=== PATIENT | female | born 1975 | race Caucasian/White ===

== ENCOUNTER 2017-05-18 16:53 | Inpatient (IN) | payer OTHER ==
[2017-05-18 18:00] VITALS: BMI 44.2
[2017-05-18 18:37] LABS: #Eosinphils 0.1 thou/uL (0.0-0.7); #Lymphocytes 2.1 thou/uL (1.20-3.40); %Basophils 0.1 % (0.0-1.0); %Eosinophils 0.6 % (0.0-10.0); %Lymphocytes 20.7 % (21.0-51.0); %Monocytes 9.9 % (0.0-10.0); Hematocrit 31.7 % (36.0-47.0); Mean Platelet Volume 7.2 fL (7.4-10.4); Red Blood Cell (RBC) Count 3.83 mill/uL (4.20-5.40); White Blood Cell (WBC) Count 10.1 thou/uL (4.8-10.8)
[2017-05-18 19:00] LABS: Bilirubin Negative (Negative); Blood, Urine Moderate (Negative); Glucose, Urine (Dipstick) Negative (Negative); Ketone, Urine Negative (Negative); Nitrite Negative (Negative); Protein, Urine (Dipstick) 30 mg/dL (Neg-Trace)
[2017-05-18 19:00] LABS: ALT (SGPT) 15 U/L (8-55); AST (SGOT) 13 U/L (5-34); Alkaline Phosphatase 149 U/L (40-150); Anion Gap 12 mmol/L (10-20); BUN (Urea Nitrogen) 8 mg/dL (7.0-18.7); Bilirubin, Total 0.3 mg/dL (0.2-1.2); Calc. Creatinine Clearance 234 mL/min (70-130); Calcium 8.5 mg/dL (7.8-10.44); Carbon Dioxide 21 mmol/L (22-29); Chloride 107 mmol/L (98-107); Estimated GFR-MDRD Greater than 90; Globulin 3.3 g/dL (2.4-3.5); Protein, Total 6.1 g/dL (6.0-8.3)
[2017-05-18 19:03] LABS: Bacteria/HPF None Seen HPF (None Seen); Hyaline Casts/LPF 7-10 HYALINE CAST LPF (0-3 Hyaline); RBC/HPF 21-50 HPF (0-3)
[2017-05-19] MEDS ORDERED: Ondansetron HCl/PF 4 MG/2 ML Vial IVP PRN (07:39)
--- NOTE | 2017-05-19 07:47 | HP ---
DATE OF ADMISSION: 05/18/2017 CHIEF COMPLAINT: Elevated blood pressure and proteinuria in the office. HISTORY OF PRESENT ILLNESS: At the time of presentation, Ms. Fabian is a 42-year-old 5, par a 3 at 36 weeks 4 days, who sees Dr. Sergio Ryder for care. The patient's blood pressure in the office was noted to be elevated as well as 3+ proteinuria on a urine dip. So, the patient wa s sent to Labor and Delivery for further evaluation. The patient denies any fever or chills. She d enies any cardiovascular or respiratory complaints. She denies any upper abdominal pain, vomiting, or constipation. She denies any headache or scotoma, but she does report some blurry vision through out the day, but states that she is not having it now. She reports good movement, occasional contractions, no vaginal bleeding and no leakage of fluid. LIMITED REVIEW OF SYSTEMS: Per HPI. PAST MEDICAL HISTORY: Interstitial cystitis. PAST SURGICAL HISTORY: 1. delivery. 2. Bladder biopsy. MEDICATIONS: 1. Prilosec. 2. vitamin. 3. Aspirin. ALLERGIES: SULFA causes swelling. SOCIAL HISTORY: The patient is . Denies tobacco, alcohol, or illicit drug use. PHYSICAL EXAMINATION: VITAL SIGNS: Blood pressure is 120s-150s/50s-60s, pulse 83, respiratory rate 16, temperature 98.6. GENERAL: Nontoxic-appearing obese female, in no acute distress. HEENT: Normocephalic, atraumatic. LUNGS: Clear to auscultation. CARDIOVASCULAR: Regular rate and rhythm. ABDOMEN: Gravid, obese, nontender. EXTREMITIES: Without cyanosis or clubbing. There is 1-2+ pitting edema of the bilateral lower extr emities, which is equal. NEUROLOGIC: Alert and oriented x3, no focal deficits. OBSTETRIC: heart tracing is reactive. Tocodynamometer shows occasional contractions. LABORATORY DATA: White blood cell count 10, hematocrit 31, platelets 221, BUN 8, creatinine 0.59. Sodium 136, potassium 3.8, AST 13, ALT 15, protein to creatinine ratio is 0.232. ASSESSMENT AND PLAN: 1. A 36-week 4-day intrauterine with category 1 tracing. 2. Gestational hypertension with proteinuria, but a gzplimj-rx-kpqqoldnez ratio is 0.232. We will keep patient for a 24-hour urine and observation of blood pressures. Dr. Ryder was notified.
[2017-05-19] MEDS ORDERED: FLU VACC QS2017-18 36 mo. & older 0.5 ML SYRINGE IM ONE (09:00)
--- NOTE | 2017-05-19 11:34 | PRG ---
DATE OF SERVICE: 05/19/2017 This is hospital day #1 TIME OF EVALUATION AT BEDSIDE: 11:05 a.m. LOCATION: Bed [address], [facility] at [place]. SUBJECTIVE: In brief, this is a patient admitted by Dr. Sonal Jarvis for blood pressure evaluation at 36 weeks and 5 days, history of prior section. We are in the process of doing a 24-nichole r urine collection that will over at approximately 2100 today. Currently, she has no new concerns o r complaints. She has no contractions, no vaginal bleeding, no leakage of fluid, no headaches, visu al changes or right upper quadrant symptoms. OBJECTIVE: Blood pressures are in the normal range in the 120s/60s to one teens over 70s. There wa s one blood pressure earlier today with systolic blood pressure in the 130s. A 24-hour urine collec tion will be done at 2100 tonight. Other labs were within normal limits. ASSESSMENT: This is a patient of Dr. Ryder that is undergoing a gestational hypertension evaluatio n. Her urine protein to creatinine ratio was borderline at 0.23 with a significant cut off defined as 0.3. I have discussed the case with Dr. Ryder and she has a repeat scheduled for [facility] at 07:15 in the morning. I have addressed this with her. PLAN: For now: 1. We will continue 24-hour urine. 2. Blood pressures show no evidence of severe criteria. 3. We may send the patient home today at 2100 after 24-hour urine collection if blood pressures con tinued to be mild. 4. Patient instructed on repeat at 37 weeks based on gestational hypertension/PIH based [facility] guidelines.
[2017-05-19 21:24] VITALS: BP 132/62; TEMP 98.1
[2017-05-19 21:26] LABS: Collection Duration 24 hrs
[2017-05-19 22:28] LABS: Protein - 24 Hr 380 mg/24 hr (Less than 300); Protein, Urine 33 mg/dL (1-14)
--- NOTE | 2017-05-20 03:36 | DIS ---
DATE OF ADMISSION: 05/19/2017 PRINCIPAL DIAGNOSES: 1. Gestational hypertension. 2. 36 weeks and 4 days gestation. 3. Prior section in the past. PRINCIPAL PROCEDURES: 1. A 24-hour urine collection. 2. Nonstress test monitoring. HOSPITAL REVIEW: In brief, this is a patient admitted on 05/19/[address] Sonal Jarvis as a patie nt of Dr. Ryder who is a 42-year-old 5, para 3 at 36 weeks and 4 days. She arrived after carlitos sales seen at the office of Dr. Ryder and was sent to Labor and Delivery for blood pressure evaluati on. She was noted to have an elevated urine protein on voided specimen of 3+ in the clinic. She wa s admitted by Dr. Sonal Jarvis for blood pressure evaluation. She does have a history of a prior c esarean section in the past. On laboratory assessment, her hematocrit value was 31, platelets were normal at 221 on 05/18/2017. AST and ALT were completely normal at 13 and 15. Creatinine was 0.59. Urine wkhahze-ve-kjlvbofenn ratio revealed a value less than 0.3 mg/dL (urine creatinine 172, urin e protein 40). The patient was kept for 24 hours for observation of blood pressure with blood press ures being in the 120s-130s over 60s-70s. Blood pressures occasionally were in the one-teens over 6 0s. The 24-hour urine collection terminated on 05/19/2017 at roughly 2120 hours. As her blood pres sures were only borderline, the diagnosis was made of likely gestational hypertension based on urine eouooqk-nv-zpbvoihocv ratio showing a nonproteinuric result. The 24-hour urine collection was sent for documentation. The case was also evaluated by Dr. Ryder who is aware of the patient's arrival . The patient was sent home on 05/19/2017 at roughly 2130 hours without acute complication. She patel s a repeat scheduled on Monday, which is at [address] Ryder, that is sc heduled for 07:00 a.m. She was told to arrive fasting at approximately 0515 hours in the morning on Monday. At time of discharge, there was no evidence of preeclampsia or of labor. There was no celia dence of vaginal bleeding. The nonstress test, which was evaluated by earlier today was normal/r eactive. The decision was made to send her home over the weekend and have her return on Monday, lavon ch is the 05/22 for elective repeat at 37 weeks for diagnosis of likely gestational hypert ension.
== END 2017-05-19 21:45 | disposition home or self-care (01) | DRG 782 ==
LOC: L&D/OP 16:53 → L&D 22:29 → 3SE 05-19 00:32
PROVIDERS: ADMIT Obstetrics & Gynecology; ATTEND Obstetrics & Gynecology
DX: O13.3 Gestational [pregnancy-induced] hypertension without significant proteinuria, third trimester (principal); O34.219 Maternal care for unspecified type scar from previous cesarean delivery; Z3A.36 36 weeks gestation of pregnancy
CPT/HCPCS: 36415; 59025; 80053; 81001; 82570; 84156; 85025

== ENCOUNTER 2017-05-22 05:11 | Inpatient (IN) | payer OTHER ==
--- NOTE | 2017-05-21 23:42 | HP ---
DATE OF ADMISSION: 05/22/2017 REASON FOR ADMISSION: Gestational hypertension, repeat section, advanced maternal age at 3 7 weeks' gestation. HISTORY OF PRESENT ILLNESS: Ms. Fabian is a 42-year-old 5, para 3, AB 2, living 3 with twin s, who has been my patient since the first trimester. She is for repeat section at term; h owever, the patient developed gestational hypertension with systolic blood pressures persistently gr eater than 140 with negative proteinuria. As per ACOG guidelines, a decision was made to proceed wi th repeat section at 37 weeks' gestation. 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 She had a SAB in 2015. PAST MEDICAL HISTORY: None. PAST SURGICAL HISTORY: . ALLERGIES: BACTRIM. MEDICATIONS: vitamins. SOCIAL HISTORY: Denies tobacco, alcohol, or drug use. FAMILY HISTORY: Noncontributory. REVIEW OF SYSTEMS: Noncontributory. PHYSICAL EXAMINATION: GENERAL: Reveals a white female. VITAL SIGNS: Blood pressure 150/72, 266 pounds. HEENT: Within normal limits. LUNGS: Clear to auscultation bilaterally. HEART: Regular rhythm. BREASTS: No masses bilaterally. ABDOMEN: Soft, nontender, no rebound or guarding. PELVIC: Vulva the patient has a mild case of hidradenitis suppurativa that has been persistent for the last 10 years. Vagina without discharge. Cervix closed, long, and high. Fundal height 42 cm. FHTs 140s. EXTREMITIES: Without clubbing, cyanosis, or edema. 3+ edema. IMAGING STUDIES: Ultrasound suggested an estimated weight of approximately 8.5-9 pounds, norm al placenta, normal amniotic fluid index. IMPRESSION: Prior section, advanced maternal age, obesity with gestational hypertension at 37 weeks' gestation. PLAN: Repeat section. We will administer appropriate antibiotic and deep venous thrombosi s prophylaxis.
[2017-05-22] MEDS ORDERED: Lactated Ringer's 1,000 ML IV PRN (05:42)
[2017-05-22] MEDS ORDERED: Ondansetron HCl/PF 4 MG/2 ML Vial IVP PRN ×2 (05:42→07:24)
[2017-05-22] MEDS ORDERED: Promethazine HCl 25 MG/ML VIAL IM PRN ×2 (05:42→07:24)
[2017-05-22] MEDS ORDERED: Lactated Ringer's 1,000 ML IV SCH ×2 (05:42→10:37)
[2017-05-22] MEDS ORDERED: Bicitra 30 ML UDCUP PO SCH (05:42)
[2017-05-22 05:46] VITALS: BMI 44.2
[2017-05-22 06:43] LABS: Hematocrit 32.3 % (36.0-47.0); Mean Platelet Volume 8.1 fL (7.4-10.4); Red Blood Cell (RBC) Count 3.91 mill/uL (4.20-5.40); White Blood Cell (WBC) Count 9.5 thou/uL (4.8-10.8)
[2017-05-22] MEDS ORDERED: SODIUM CHLORIDE IVPB SCH (07:15)
[2017-05-22] MEDS ORDERED: CEFAZOLIN SODIUM IVPB SCH (07:15)
[2017-05-22] MEDS ORDERED: ADMIXTURE FEE IVPB SCH (07:15)
[2017-05-22] MEDS ORDERED: Oxytocin 10 UNITS/ML VIAL ONE ×2 (07:18→08:13)
[2017-05-22] MEDS ORDERED: Ketorolac Tromethamine 30 MG/ML VIAL ONE (07:18)
[2017-05-22] MEDS ORDERED: Ondansetron HCl/PF 4 MG/2 ML Vial ONE (07:18)
[2017-05-22] MEDS ORDERED: Fentanyl 100 MCG/2 ML VIAL ONE (07:18)
[2017-05-22] MEDS ORDERED: Eucerin (Mineral Oil/Petrolatum,White) 30 gm Jar TOP PRN (07:24)
[2017-05-22] MEDS ORDERED: Promethazine HCl 25 MG SUPP PR PRN (07:24)
[2017-05-22] MEDS ORDERED: Naloxone HCl 0.4 mg/ml Vial IVP PRN ×2 (07:24)
[2017-05-22] MEDS ORDERED: diphenhydrAMINE HCl 50 MG/ML 1 ML VIAL IVP PRN (07:24)
[2017-05-22] MEDS ORDERED: Naloxone HCl 0.4 mg/ml Vial IV PRN (07:24)
[2017-05-22] MEDS ORDERED: Communication Order-Pharmacy FS SCH (07:30)
--- NOTE | 2017-05-22 09:43 | OP ---
DATE OF PROCEDURE: 05/22/2017 PREOPERATIVE DIAGNOSIS: 1. Thirty-seven weeks gestation. 2. Prior section. 3. Gestational hypertension. 4. Advanced maternal age. 5. Maternal obesity. POSTOPERATIVE DIAGNOSES: 1. Thirty-seven weeks gestation. 2. Prior section. 3. Gestational hypertension. 4. Advanced maternal age. 5. Maternal obesity. PROCEDURE: Repeat low transverse section without extension. SURGEON: Sergio Ryder M.D. PARTY SUPPLY SPECIALIST: Madeleine Amaya D.O. ANESTHESIA: Subarachnoid block. ESTIMATED BLOOD LOSS: 750 mL. DRAINS: Gomez to gravity. MEDICATIONS: Three grams Ancef preincision. DVT PROPHYLAXIS: SCDs. OPERATIVE FINDINGS: 1. Vigorous male infant, Apgars and weight pending. Clear fluid, nuchal cord x1, cephalic position , to nursery in good condition. 2. Normal appearing uterus, tubes, and ovaries bilaterally. 3. Hemostasis with clear urine, counts correct at the end of the procedure. DISPOSITION: To the recovery room in good condition. DESCRIPTION OF OPERATIVE PROCEDURE: After obtaining proper informed consent, the patient was taken to the operating room where subarachnoid block achieved without difficulty. The patient prepped and draped in the usual manner. A previous vertical midline skin incision identified, incised sharply, carried down the fascia, incised sharply, extended superiorly and inferiorly with curved Thacker sciss ors. Peritoneum entered bluntly. Beni O retractor placed inside. Low transverse hysterotomy inc ision made and extended superiorly and laterally with finger fractionization. 's head elevate d through the hysterotomy, delivered. Cord cut and handed off to team in attendance. Usua l cord blood sample obtained. Placenta delivered manually. Hysterotomy was noted be without extens ion and closed using a running locking #1 Monocryl suture x2 layers. Good hemostasis was noted afte r closure, suction irrigation of gutters revealed good hemostasis. Reinspection of the hysterotomy revealed it to be dry. Counts were correct at this point in time. The Beni O retractor removed. Fascia reapproximated using running continuous 0 PDS suture x2. Subcutaneous tissue irrigated, hem ostasis with Bovie cautery, reapproximated with 3-0 plain gut x2, skin reapproximated with shashank. The patient was taken to recovery room in good condition.
[2017-05-22] MEDS ORDERED: Meperidine HCl/PF 25 MG/ML VIAL ONE (10:22)
[2017-05-22] MEDS ORDERED: Zolpidem Tartrate 5 MG TAB PO PRN (10:37)
[2017-05-22] MEDS ORDERED: Lanolin Ointment 7 GM TUBE TOP PRN (10:37)
[2017-05-22] MEDS ORDERED: Meperidine HCl/PF 25 MG/ML VIAL IM PRN (10:37)
[2017-05-22] MEDS ORDERED: Adacel (T-DAP) 0.5 ML VIAL IM ONE (10:37)
[2017-05-22] MEDS ORDERED: LR w/ Pitocin 40 units/1000 ML BAG IV SCH (10:37)
[2017-05-22] MEDS ORDERED: diphenhydrAMINE HCl 25 MG CAP PO PRN (10:37)
[2017-05-22] MEDS ORDERED: Simethicone Chewable 80 MG TAB PO PRN (10:37)
[2017-05-22] MEDS ORDERED: NIFEdipine 10 MG CAP PO PRN (10:37)
[2017-05-22] MEDS: Prenatal Vitamin 1 TAB PO SCH (11:47)
[2017-05-22] MEDS: Docusate (Surfak) 240 MG CAP PO SCH ×2 (11:47→20:56)
[2017-05-22] MEDS ORDERED: Meperidine HCl/PF 25 MG/ML VIAL SLOW IVP SCH (12:15)
[2017-05-22] MEDS: Ketorolac Tromethamine 30 MG/ML VIAL IVP PRN ×2 (14:22→20:14)
[2017-05-22] MEDS: Ibuprofen 800 MG TAB PO SCH ×2 (14:30→20:55)
[2017-05-23] MEDS: Ketorolac Tromethamine 30 MG/ML VIAL IVP PRN (02:51)
[2017-05-23] MEDS: Ibuprofen 800 MG TAB PO SCH ×3 (04:59→21:10)
[2017-05-23 05:59] LABS: Hematocrit 29.3 % (36.0-47.0); Mean Platelet Volume 7.6 fL (7.4-10.4); White Blood Cell (WBC) Count 10.5 thou/uL (4.8-10.8)
[2017-05-23] MEDS: Prenatal Vitamin 1 TAB PO SCH (07:55)
[2017-05-23] MEDS: Docusate (Surfak) 240 MG CAP PO SCH ×2 (07:55→21:10)
[2017-05-23] MEDS: HYDROcodone/Acetaminophen 5/325 mg Tablet PO PRN ×3 (07:56→17:28)
[2017-05-23] MEDS ORDERED: FLU VACC QS2017-18 36 mo. & older 0.5 ML SYRINGE IM ONE (09:00)
--- NOTE | 2017-05-23 12:19 | PDOC.PP ---
Post Progress Note Post Day #: 1 PO intake tolerated: yes Flatus: yes Ambulation: yes Vital Signs (12 hours) Temp Pulse Resp BP 05/23/17 07:55 98.2 F 87 18 148/68 H 05/23/17 04:45 98.8 F 80 16 141/66 H Weight Weight 266 lb - Physical Examination General: NAD Cardiovascular: no m/r/g, RRR Respiratory: clear to ausculation bilateral Abdominal: + bowel sounds, lochia, no distention, appropriately TTP Extremities: negative homans (B) Skin: no rash Neurological: no gross focal deficits Psychiatric: normal affect (doing well pod 1. no need for anti htn meds. routine care, home on pod 2 or 3) Result Diagrams: 05/23/17 04:16 Additional Labs: Post Labs Blood Type O POSITIVE 05/22/17 06:07 Hep Bs Antigen Non-Reactive S/CO (NonReactive) 05/22/17 06:07
[2017-05-24] MEDS: Ibuprofen 800 MG TAB PO SCH ×2 (05:00→13:27)
[2017-05-24] MEDS: HYDROcodone/Acetaminophen 5/325 mg Tablet PO PRN ×3 (05:01→13:28)
[2017-05-24 08:05] VITALS: BP 161/73; TEMP 97.7
--- NOTE | 2017-05-24 09:28 | PDOC.PP ---
Post Progress Note Post Day #: 2 PO intake tolerated: yes Flatus: yes Ambulation: yes Vital Signs (12 hours) Temp Pulse Resp BP 05/24/17 08:03 97.7 F 82 18 161/73 H 05/24/17 08:00 97.7 F 82 18 05/24/17 00:00 98.0 F 86 18 160/77 H Weight Weight 266 lb - Physical Examination General: NAD Cardiovascular: no m/r/g, RRR Respiratory: clear to ausculation bilateral Abdominal: + bowel sounds, lochia, no distention, appropriately TTP Extremities: negative homans (B) Skin: no rash Neurological: no gross focal deficits Psychiatric: normal affect Result Diagrams: 05/23/17 04:16 Additional Labs: Post Labs Blood Type O POSITIVE 05/22/17 06:07 Hep Bs Antigen Non-Reactive S/CO (NonReactive) 05/22/17 06:07 (1) Gestational hypertension Code(s): O13.9 - GESTATIONAL HTN W/O SIGNIFICANT PROTEINURIA, UNSP TRIMESTER Status: Acute Qualifiers: Trimester: third trimester Qualified Code(s): O13.3 - Gestational [ -induced] hypertension without significant proteinuria, third trimester - Assessment/Plan bps noted. pt desires dc. will begin amlodipine 5 hs at dc and fu bp at office in 5 days. pt to check bp at home. desires dc today
[2017-05-24] MEDS: Prenatal Vitamin 1 TAB PO SCH (09:34)
[2017-05-24] MEDS: Docusate (Surfak) 240 MG CAP PO SCH (09:35)
== END 2017-05-24 14:17 | disposition home or self-care (01) | DRG 765 ==
LOC: L&D 05:11 → 3SE 11:05 → 3SW 19:17
PROVIDERS: ADMIT Obstetrics & Gynecology; ATTEND Obstetrics & Gynecology
PROC: 10D00Z1 Extraction of Products of Conception, Low, Open Approach (ICD-10-PCS; principal; 2017-05-22)
DX: O13.4 Gestational [pregnancy-induced] hypertension without significant proteinuria, complicating childbirth (principal); Z68.41 Body mass index [BMI] 40.0-44.9, adult; Z37.0 Single live birth; Z3A.37 37 weeks gestation of pregnancy; O34.211 Maternal care for low transverse scar from previous cesarean delivery; E66.9 Obesity, unspecified; O69.81X0 Labor and delivery complicated by cord around neck, without compression, not applicable or unspecified
CPT/HCPCS: 36415; 85027; 86780; 86850; 86900; 86901; 87340; A4216; J0131; J0690; J1885; J2175; J2274; J2405; J2590; J3010; J7050

== ENCOUNTER 2018-06-01 14:48 | Outpatient (CLI) | payer BC, OTHER ==
--- NOTE | 2018-06-01 16:04 | ULT ---
RENAL ULTRASOUND: 06/01/18 HISTORY: Hematuria. Multiple longitudinal and transverse images of the kidneys and bladder is obtained using a multihert z curvilinear transducer. Real time color flow images demonstrate both kidneys to be of normal contou r, axis and size. Right kidney measures 12.4 and left kidney 13.1 cm from pole to pole. No evidence o f renal parenchymal masses or lesions seen. The urinary bladder is unremarkable. Prevoid bladder volume measures 115 mL. IMPRESSION: Normal renal ultrasound. POS: [facility]
--- NOTE | 2018-06-01 16:19 | RAD ---
AP VIEW ABDOMEN : 06/01/18 HISTORY: Interstitial cystitis. Frequent micturition. AP view abdomen and pelvis is obtained. A moderate amount of stool is seen in the colon. No evidence of renal calculi seen. No evidence of bowel obstruction or ileus seen. No dilated loops of bowel. IMPRESSION: Unremarkable AP view abdomen. POS: [facility]
== END 2018-06-01 14:49 | disposition home or self-care (01) ==
LOC: BICULT 14:48
PROVIDERS: ATTEND Urology
DX: N30.10 Interstitial cystitis (chronic) without hematuria (principal); R35.0 Frequency of micturition
CPT/HCPCS: 74018; 76770

== ENCOUNTER 2019-02-06 13:14 | Day surgery (SDC) | payer BC ==
[2019-02-05 10:39] VITALS: BMI 42.4
--- NOTE | 2019-02-06 08:12 | HP ---
HISTORY OF PRESENT ILLNESS: This is a 43-year-old female who had food impaction recently. The patient had a food impaction couple of years ago. She had another food impaction about a couple of weeks ago. The food bolus got stuck in the esophagus and she was unable to swallow any water. After gagging and retching and after the food bolus went down. The patient comes for EGD and dilation because of the dysphagia and the history of esophageal stricture. ALLERGIES: 1. NEOSPORIN. 2. SULFA DRUGS. SOCIAL HISTORY: The patient does not smoke or drink alcohol. MEDICAL ILLNESSES: 1. Obesity. 2. Interstitial cystitis. 3. Hypertension. 4. Chronic acid reflux. 5. Anxiety. 6. . 7. Bladder biopsy. PHYSICAL EXAMINATION: GENERAL: The patient is obese, appears comfortable. VITAL SIGNS: Pulse is 72, blood pressure 120/80. HEENT: Conjunctivae clear. NECK: Soft. No adenitis or thyromegaly noted. CARDIOVASCULAR: First and second heart sounds normal. LUNGS: Clear to auscultation. ABDOMEN: Soft. No organomegaly. No tenderness. No masses. Bowel sounds normal. ADMITTING DIAGNOSES: 1. Esophageal stricture. 2. Recent food impaction on the esophagus. PLAN: EGD and dilation. Job ID: [id number]
--- NOTE | 2019-02-07 09:09 | OP ---
DATE OF PROCEDURE: 02/06/2019 OPERATIVE PROCEDURE: 1. Esophagogastroduodenoscopy. 2. Esophageal dilation with a balloon size 15 to 18 mm. 3. Esophageal dilation with a 52-Anguillan Regan dilator. PREOPERATIVE DIAGNOSIS: Dysphagia, recent foreign body impaction. She had meat impaction about 2 weeks ago. She had similar episodes about 2 years ago. POSTOPERATIVE DIAGNOSES: 1. Normal stomach and duodenum. 2. The esophageal lumen does not appear to be very tight, mildly narrowed. The mucosa appeared normal. DESCRIPTION OF PROCEDURE: The patient was placed on her left lateral position and was given sedation by Anesthesia Department. A Pentax video gastroscope under direct vision was passed down the oropharynx, past the GE junction into the stomach and subsequently into the descending duodenum. The esophageal lumen does appear to be very tight. The scope was advanced down without difficulty. Over the distal esophagus, there was mild questionable narrowing seen. The mucosa appeared normal. There is mucus and mild seen. Retroflexion failed to show any pathology in fundus or cardia. The gastric body, gastric antrum, no pathology seen. The duodenal bulb, descending duodenum, no pathology seen. The scope was withdrawn back into the GE junction. A Bard balloon size 15 to 18 mm was passed into the stomach and carefully withdrawn and placed over the GE junction. This was inflated to stage 2 for 2 minutes. Following the stage 2 dilation, I was able to get the balloon across the GE junction back and forth without any difficulty. stage 3, again the balloon was inflated to stage 3 and again the balloon can be brought across the GE junction without difficulty. Because of the above reasons, I elected to pass a 52-Anguillan Regan dilator. The scope was removed. A 52-Anguillan Regan dilator was passed down without resistance. DISCHARGE PLANNING: This is a 43-year-old female with dysphagia to solid food. She had an episode of meat impaction a couple of weeks ago. She had similar episodes 2 years ago. She underwent EGD and balloon dilation followed by passage of a 52-Anguillan Regan dilator. DISCHARGE RECOMMENDATIONS: 1. The patient is advised to call me if she develops any chest discomfort, fever, hematemesis, melena. 2. Mechanical soft diet today and back to regular diet tomorrow. 3. To come back to clinic in 2 weeks. Job ID: [id number]
== END 2019-02-06 17:13 | disposition home or self-care (01) ==
LOC: SDC 13:14
PROVIDERS: ATTEND Internal Medicine Gastroenterology
PROC: 0D758ZZ Dilation of Esophagus, Via Natural or Artificial Opening Endoscopic (ICD-10-PCS; principal; 2019-02-06)
DX: K22.2 Esophageal obstruction (principal); I10 Essential (primary) hypertension; K21.9 Gastro-esophageal reflux disease without esophagitis; F41.9 Anxiety disorder, unspecified; E66.9 Obesity, unspecified; Z68.41 Body mass index [BMI] 40.0-44.9, adult; Z88.1 Allergy status to other antibiotic agents; Z88.2 Allergy status to sulfonamides; Z79.899 Other long term (current) drug therapy; Z98.890 Other specified postprocedural states

== ENCOUNTER 2022-02-27 22:31 | Day surgery (SDC) | payer OTHER ==
[2022-02-27] MEDS ORDERED: Midazolam HCl 2 mg/2 ml Vial ONE (22:46)
[2022-02-27] MEDS ORDERED: Fentanyl 100 MCG/2 ML VIAL ONE (22:46)
[2022-02-27] MEDS ORDERED: Ondansetron PF 4 MG/2 ML Vial ONE (22:57)
[2022-02-27] MEDS ORDERED: Dexamethasone 20 MG/5 ML VIAL ONE (22:57)
[2022-02-27] MEDS ORDERED: Lidocaine 1% PF 5 ML VIAL ONE (22:57)
[2022-02-27] MEDS ORDERED: PROPOFOL 200 MG/20 ML VIAL ONE (22:57)
[2022-02-27] MEDS ORDERED: Succinylcholine 200 MG/10 ml SYRINGE FS ONE (22:57)
[2022-02-27] MEDS ORDERED: ePHEDrine 50 MG/ML VIAL ONE (22:57)
[2022-02-27] MEDS ORDERED: Phenylephrine 10 MG/ML VIAL ONE (22:57)
[2022-02-28] MEDS ORDERED: Fentanyl 100 MCG/2 ML VIAL ONE (00:15)
== END 2022-02-28 01:15 | disposition home or self-care (01) ==
LOC: ERS 22:31 → SDC 02-28 01:15
PROVIDERS: ATTEND Internal Medicine
PROC: 0DB28ZX Excision of Middle Esophagus, Via Natural or Artificial Opening Endoscopic, Diagnostic (ICD-10-PCS; principal; 2022-02-27)
PROC: 0DC28ZZ Extirpation of Matter from Middle Esophagus, Via Natural or Artificial Opening Endoscopic (ICD-10-PCS; principal; 2022-02-27)
PROC: 0DB38ZX Excision of Lower Esophagus, Via Natural or Artificial Opening Endoscopic, Diagnostic (ICD-10-PCS; principal; 2022-02-27)
PROC: 0DB18ZX Excision of Upper Esophagus, Via Natural or Artificial Opening Endoscopic, Diagnostic (ICD-10-PCS; principal; 2022-02-27)
DX: T18.128A Food in esophagus causing other injury, initial encounter (principal); K20.80 Other esophagitis without bleeding; K22.2 Esophageal obstruction; K22.89 Other specified disease of esophagus; Z88.1 Allergy status to other antibiotic agents; Z88.2 Allergy status to sulfonamides
CPT/HCPCS: 88305; J1100; J2250; J2370; J2405; J2704; J3010; J3490

== ENCOUNTER 2024-01-11 17:40 | Day surgery (SDC) | payer BC ==
[2024-01-11] MEDS ORDERED: Glucagon 1 MG/ML KIT ONE (18:51)
[2024-01-11] MEDS ORDERED: PROPOFOL 20 ML ONE (21:32)
[2024-01-11] MEDS ORDERED: Lidocaine 1% PF 5 ML VIAL ONE (21:32)
[2024-01-11] MEDS ORDERED: fentaNYL PF 100 MCG/2 ML SYRINGE ONE (21:32)
[2024-01-11] MEDS ORDERED: SUCCINYLCHOLINE/SOD CL,ISO/PF 200 MG/10 ML SYRINGE FS ONE (21:32)
[2024-01-11] MEDS ORDERED: Lidocaine 2% 6 ML (Jelly) SYR ONE (21:33)
[2024-01-11] MEDS ORDERED: Dexamethasone 20 MG/5 ML VIAL ONE (22:17)
[2024-01-11] MEDS ORDERED: Ondansetron PF 4 MG/2 ML Vial ONE (22:17)
== END 2024-01-11 23:20 | disposition home or self-care (01) ==
LOC: ERS 17:40 → SDC/OP 22:06
PROVIDERS: ATTEND Psychiatry & Neurology Psychiatry
PROC: 0DC58ZZ Extirpation of Matter from Esophagus, Via Natural or Artificial Opening Endoscopic (ICD-10-PCS; principal; 2024-01-11)
PROC: 0D758ZZ Dilation of Esophagus, Via Natural or Artificial Opening Endoscopic (ICD-10-PCS; principal; 2024-01-11)
DX: T18.128A Food in esophagus causing other injury, initial encounter (principal); K22.2 Esophageal obstruction; F41.9 Anxiety disorder, unspecified; F98.8 Other specified behavioral and emotional disorders with onset usually occurring in childhood and adolescence; Z88.2 Allergy status to sulfonamides; Z98.890 Other specified postprocedural states
CPT/HCPCS: J1100; J1611; J2405; J2704